=== PATIENT | female | born 1945 | race Caucasian/White ===

== ENCOUNTER 2019-03-06 02:40 | Inpatient (IN) | payer MEDICARE, OTHER ==
[~2019-03-06] VITALS: Ht 182.9 cm; Wt 107.2 kg
[~2019-03-06 02:40] MED LIST: APIX5TAB PO; BENA40TA56 PO; CARV25TA79 PO; CARV6.2579 PO; FLUO10CA17 PO; FLUO20CA22 PO; FURO20TA3 PO; FURO40TA4 PO; LEVO50TA7 PO; LISI-313 PO; NYST15CR28 TOP; SPIR25TA PO
[2019-03-06] MEDS ORDERED: ENOXAPARIN 60 MG/0.6 ML SYG SC ONE (06:00)
[2019-03-06] MEDS ORDERED: HYDROCODONE/APAP (5/325) TAB PO ONE (06:30)
[2019-03-06] MEDS ORDERED: DIPHTH/TET/ACEL PERTUSS (ADULT) 0.5 ML VIAL IM* ONE (10:00)
[2019-03-06] MEDS ORDERED: DOCUSATE SODIUM 100 MG CAP PO PRN (10:00)
[2019-03-06] MEDS ORDERED: ACETAMINOPHEN 325 MG TAB PO PRN (10:00)
[2019-03-06] MEDS ORDERED: NACL 0.9% 3 ML SYG IV SCH (10:00)
[2019-03-06] MEDS ORDERED: LORAZEPAM 0.5 MG TAB PO PRN (10:00)
[2019-03-06] MEDS ORDERED: NA PHOSPHATE/BIPHOS 133 ML ENEMA PR PRN (10:00)
[2019-03-06] MEDS ORDERED: PNEUMOC 13-VAL CONJ-DIP CRM/PF 0.5 ML SYR IM* ONE (10:00)
[2019-03-06] MEDS ORDERED: FUROSEMIDE 40 MG INJ IV ONE ×2 (10:00)
[2019-03-06] MEDS ORDERED: ONDANSETRON 4 MG TAB PO PRN (10:00)
[2019-03-06] MEDS ORDERED: NITROGLYCERIN (SL) 0.4 MG TAB SL PRN (10:00)
[2019-03-06] MEDS ORDERED: ZOLPIDEM 5 MG TAB PO PRN (10:00)
[2019-03-06] MEDS: SPIRONOLACTONE 25 MG TAB PO SCH (10:50)
[2019-03-06] MEDS ORDERED: METOPROLOL 5 MG INJ IV PRN (14:00)
[2019-03-06] MEDS ORDERED: DIGOXIN 500 MCG INJ IV ONE (14:00)
[2019-03-06] MEDS: HYDROCODONE/APAP (5/325) TAB PO PRN (14:29)
[2019-03-06] MEDS: FUROSEMIDE 40 MG TAB PO SCH (17:41)
[2019-03-06 17:46] VITALS: Ht 182.9 cm; Wt 107.2 kg
[2019-03-06 18:01] VITALS: BP 138/86; PULSE 97; RESP 16
[2019-03-06 20:00] VITALS: BP 148/80; PULSE 104; RESP 18
[2019-03-06] MEDS: FAMOTIDINE 20 MG TAB PO SCH (21:01)
[2019-03-06] MEDS: FLUOXETINE 20 MG CAP PO SCH (21:01)
[2019-03-06] MEDS: APIXABAN 5 MG TABLET PO SCH (21:01)
[2019-03-06] MEDS: LISINOPRIL 5 MG TAB PO SCH (21:02)
[2019-03-07] VITALS (7 sets, daily range): BP systolic 85–119; BP diastolic 49–59; PULSE 82–92; RESP 18–20
[2019-03-07] MEDS: HYDROCODONE/APAP (5/325) TAB PO PRN (01:37)
[2019-03-07] MEDS ORDERED: ASPIRIN (EC) 325 MG TAB PO SCH (09:00)
[2019-03-07] MEDS ORDERED: FUROSEMIDE 40 MG TAB PO SCH (09:00)
[2019-03-07] MEDS: FAMOTIDINE 20 MG TAB PO SCH ×2 (09:04→20:47)
[2019-03-07] MEDS: ASPIRIN (EC) 81 MG TAB PO SCH (09:04)
[2019-03-07] MEDS: SPIRONOLACTONE 25 MG TAB PO SCH (09:04)
[2019-03-07] MEDS: APIXABAN 5 MG TABLET PO SCH ×2 (09:04→20:47)
[2019-03-07] MEDS: LISINOPRIL 5 MG TAB PO SCH ×2 (09:05→20:41)
[2019-03-07] MEDS: FUROSEMIDE 40 MG TAB PO SCH (09:05)
[2019-03-07] MEDS ORDERED: FUROSEMIDE 40 MG INJ IV ONE (14:00)
[2019-03-07] MEDS ORDERED: MAGNESIUM SULFATE 4 GM/100 ML 100 ML IVPB ONE (14:00)
[2019-03-07] MEDS ORDERED: SOD FERRIC GLUC COMPLX 125 MG in SOD CHLORIDE 0.9% 100 ML IVPB ONE (14:30)
[2019-03-07] MEDS: FLUOXETINE 20 MG CAP PO SCH (20:47)
[2019-03-07] MEDS ORDERED: ALBUMIN HUMAN 25% 100 ML IV ONE (21:30)
[2019-03-08] VITALS (7 sets, daily range): BP systolic 86–135; BP diastolic 52–74; PULSE 70–94; RESP 17–19
[2019-03-08] MEDS: ASPIRIN (EC) 81 MG TAB PO SCH (09:02)
[2019-03-08] MEDS: APIXABAN 5 MG TABLET PO SCH ×2 (09:02→21:52)
[2019-03-08] MEDS: FAMOTIDINE 20 MG TAB PO SCH ×2 (09:03→21:52)
[2019-03-08] MEDS: FUROSEMIDE 40 MG TAB PO SCH (09:03)
[2019-03-08] MEDS: SPIRONOLACTONE 25 MG TAB PO SCH (09:04)
[2019-03-08] MEDS: HYDROCODONE/APAP (5/325) TAB PO PRN ×2 (09:57→23:56)
[2019-03-08] MEDS: LISINOPRIL 5 MG TAB PO SCH (09:58)
[2019-03-08] MEDS ORDERED: FLUOXETINE 10 MG CAP PO SCH (12:30)
[2019-03-08] MEDS: FLUOXETINE 20 MG CAP PO SCH (21:52)
[2019-03-09 02:00] VITALS: BP 130/79; PULSE 81; RESP 17
[2019-03-09] MEDS ORDERED: LEVOTHYROXINE 50 MCG TAB PO SCH (07:00)
[2019-03-09 08:34] VITALS: BP 149/71; PULSE 84; RESP 20
[2019-03-09] MEDS ORDERED: LISINOPRIL 5 MG TAB PO SCH (09:00)
[2019-03-09] MEDS: HYDROCODONE/APAP (5/325) TAB PO PRN (09:00)
[2019-03-09] MEDS: FUROSEMIDE 40 MG TAB PO SCH (09:01)
[2019-03-09] MEDS: SPIRONOLACTONE 25 MG TAB PO SCH (09:01)
[2019-03-09] MEDS: APIXABAN 5 MG TABLET PO SCH (09:02)
[2019-03-09] MEDS: FAMOTIDINE 20 MG TAB PO SCH (09:02)
[2019-03-09] MEDS: ASPIRIN (EC) 81 MG TAB PO SCH (09:02)
[2019-03-09 14:36] VITALS: BP 109/71; PULSE 88; RESP 20
[2019-03-09] MEDS ORDERED: NYSTATIN 30 GM POWDER BTL TOP SCH (15:30)
== END 2019-03-09 16:02 | disposition home or self-care (01) | DRG 292 ==
LOC: E/R 02:40 → PP2 06:03 → OBSVTOIN 03-08 12:04
PROVIDERS: ADMIT Internal Medicine; ATTEND Internal Medicine
DX: I11.0 Hypertensive heart disease with heart failure (principal); I82.542 Chronic embolism and thrombosis of left tibial vein; I50.23 Acute on chronic systolic (congestive) heart failure; I42.9 Cardiomyopathy, unspecified; I48.2 Chronic atrial fibrillation; I34.0 Nonrheumatic mitral (valve) insufficiency; E03.9 Hypothyroidism, unspecified; F32.9 Major depressive disorder, single episode, unspecified; K02.9 Dental caries, unspecified; E66.9 Obesity, unspecified; Z68.33 Body mass index [BMI] 33.0-33.9, adult; Z79.82 Long term (current) use of aspirin; Z79.02 Long term (current) use of antithrombotics/antiplatelets; Z59.0 Homelessness; Z87.11 Personal history of peptic ulcer disease
CPT/HCPCS: 36415; 71045; 71046; 80048; 80053; 80061; 83540; 83735; 83880; 84443; 84484; 85025; 85610; 85730; 86803; 87081; 87340; 90670; 90715; 93005; 93306; 93970; 99217; G0009; G0378; J1940; J2916; P9047